=== PATIENT | male | born 1990 | race Caucasian/White ===

== ENCOUNTER 2019-07-06 19:55 | Emergency (ER) | payer BC ==
[~2019-07-06 19:55] MED LIST: Gadobenate Dimeglumine 529 MG/1 ML (20ML VIAL) ONE
[2019-07-06] MEDS ORDERED: Morphine 4 MG/ML VIAL ONE (21:11)
[2019-07-06] MEDS ORDERED: Ketorolac Tromethamine 30 MG/ML VIAL ONE (21:11)
[2019-07-06 21:12] LABS: #Eosinphils 0.1 thou/uL (0.0-0.7); #Lymphocytes 1.3 thou/uL (1.20-3.40); #Monocytes 1.2 thou/uL (0.11-0.59); #Neutrophils 8.7 thou/uL (1.40-6.50); %Basophils 0.1 % (0.0-1.0); %Eosinophils 0.6 % (0.0-10.0); %Lymphocytes 11.7 % (21.0-51.0); %Monocytes 10.4 % (0.0-10.0); %Neutrophils 77.2 % (42.0-75.0); Hemoglobin 14.6 g/dL (14.0-18.0); Mean Corpuscular HGB CONC 35.1 g/dL (32.0-36.0); Mean Corpuscular Hemoglobin 30.7 pg (27.0-31.0); Mean Corpuscular Volume 87.5 fL (78.0-98.0); Mean Platelet Volume 7.8 fL (7.4-10.4); Platelet Count 228 thou/uL (130-400); RBC Distribution Width 11.1 % (11.5-14.5); Red Blood Cell (RBC) Count 4.76 mill/uL (4.70-6.10); White Blood Cell (WBC) Count 11.3 thou/uL (4.8-10.8)
[2019-07-06 21:31] LABS: Anion Gap 12 mmol/L (10-20); BUN (Urea Nitrogen) 18 mg/dL (8.9-20.6); CRP (Inflammatory) 1.17 mg/dL (= or < 0.5); Calc. Creatinine Clearance 0 mL/min (70-130); Calcium 9.7 mg/dL (7.8-10.44); Carbon Dioxide 28 mmol/L (22-29); Chloride 100 mmol/L (98-107); Estimated GFR-MDRD 72; Glucose 94 mg/dL (70-105); Potassium 3.8 mmol/L (3.5-5.1); Sodium 136 mmol/L (136-145)
[2019-07-07] MEDS ORDERED: Morphine 4 MG/ML VIAL ONE (01:03)
[2019-07-07] MEDS ORDERED: traMADol HCl 50 MG TAB ONE (02:10)
--- NOTE | 2019-07-07 08:27 | MRI ---
PRELIMINARY REPORT/[facility]/EMERGENCY AFTER HOURS PROCEDURE: PROCEDURE INFORMATION: Exam: MR Thoracic Spine Without and With Contrast Exam date and time: 07/07/2019 12:30 AM Clinical history: 29 years old, male; Pain in thoracic spine; Patient HX: PT had pain injections 07/05/19 and has been in pain ever since, worse Monday night; Additional info: PT complains of severe back pain. PT states no recent trauma and no lumbar/thoracic SX. PT states he had pain injections Monday and has been in pain since then but worse tonight. Prior lumbar mri done here in 2015. Prior thoracic mri done here in 2016. PT injected with 16 mls of multihance. Creatinine: 1.18 gfr: 72 collected 07/06/19. . . Tech/notes [facility] TECHNIQUE: Imaging protocol: Multiplanar magnetic resonance images of the thoracic spine without and with intravenous contrast. COMPARISON: No relevant prior studies available. FINDINGS: Vertebrae: Unremarkable. Spinal cord: Normal signal. No cord compression. T1-T2: No significant disc disease. No significant spinal stenosis. T2-T3: No significant disc disease. No significant spinal stenosis. T3-T4: No significant disc disease. No significant spinal stenosis. T4-T5: No significant disc disease. No significant spinal stenosis. T5-T6: No significant disc disease. No significant spinal stenosis. T6-T7: No significant disc disease. No significant spinal stenosis. T7-T8: No significant disc disease. No significant spinal stenosis. T8-T9: No significant disc disease. No significant spinal stenosis. T9-T10: No significant disc disease. No significant spinal stenosis. T10-T11: No significant disc disease. No significant spinal stenosis. T11-T12: No significant disc disease. No significant spinal stenosis. Other bones/joints: Degenerative changes with disc desiccation predominantly at the midthoracic level. Soft tissues: Unremarkable. IMPRESSION: No acute process. Thank you for allowing us to participate in the care of your patient. Dictated and Authenticated by: Mary Mccain DO 07/07/2019 1:51 AM Central Time ([place] & [place]) FINAL REPORT: MRI THORACIC SPINE WITH AND WITHOUT IV CONTRAST: PROVIDED CLINICAL HISTORY: Back pain. COMPARISON: 06/16/2017. FINDINGS/IMPRESSION: Agree with the preliminary interpretation given by [facility]DR[facility]. Thoracic disc degenerative changes appears s imilar to the prior study. Transcribed Date/Time: 07/07/2019 8:40 AM
--- NOTE | 2019-07-07 08:29 | MRI ---
PRELIMINARY REPORT/[facility]/EMERGENCY AFTER HOURS PROCEDURE: PROCEDURE INFORMATION: Exam: MR Lumbar Spine Without and With Contrast. Exam date and time: 07/06/2019 11:47 PM Clinical history: 29 years old, male; Low back pain; Patient HX: Pain injections done 07/05/19 and pain ever since, worse Monday night. ; Additional info: PT complains of severe back pain. PT states no recent trauma and no lumbar/thoracic SX. PT states he had pain injections Monday and has been in pain since then but worse tonight. Prior lumbar mri done here in 2015. Prior thoracic mri done her e in 2016. PT injected with 16 mls of multihance. Creatinine: 1.18 gfr: 72 collected 07/06/19. . . Tech/notes [facility] TECHNIQUE: Imaging protocol: Multiplanar magnetic resonance images of the lumbar spine without and with intravenous contrast. COMPARISON: No relevant prior studies available. FINDINGS: Vertebrae: Unremarkable. Spinal cord: The conus terminates at L1. L1-L2: No significant disc disease. No significant spinal stenosis. L2-L3: Bilateral facet fluid at L2-L3. L3-L4: No significant disc disease. No significant spinal stenosis. L4-L5: There are degenerative changes with disc desiccation at L4-L5, L5-S1. There is minimal disc bu lge at L4-L5 with subtle effacement of the anterior thecal sac. Bilateral facet fluid L4-L5. Mild neural foraminal narrowing bilaterally. L5-S1: There are degenerative changes with disc desiccation at L4-L5, L5-S1. There is central disc pr otrusion at L5-S1. There is mild right neural foraminal narrowing at L5-S1. Minimal bilateral facet fluid, slightly more pronounced on the left. Soft tissues: Unremarkable. IMPRESSION: Degenerative changes of the lumbosacral spine. No definite acute process. Thank you for allowing us to participate in the care of your patient. Dictated and Authenticated by: Mary Mccain DO 07/07/2019 1:38 AM Central Time ([place] & [place]) FINAL REPORT: MRI LUMBAR SPINE WITH AND WITHOUT IV CONTRAST: PROVIDED CLINICAL HISTORY: Back pain. COMPARISON: 05/27/2019. FINDINGS/IMPRESSION: Agree with the preliminary interpretation given by MILDRED. Lumbar degenerative changes appear similar t o the prior study. Transcribed Date/Time: 07/07/2019 8:45 AM
== END 2019-07-07 02:18 | disposition home or self-care (01) ==
LOC: ERS 19:55
DX: M54.5 Low back pain (principal); R50.9 Fever, unspecified
CPT/HCPCS: 72157; 72158; 80048; 85025; 85652; 86140; 87804; 96374; 96375; 96376; A9577; J1885; J2270

== ENCOUNTER 2023-08-10 20:46 | Emergency (ER) | payer BC ==
[2023-08-10] MEDS ORDERED: Ibuprofen 800 MG TAB ONE (21:23)
== END 2023-08-10 21:30 | disposition home or self-care (01) ==
LOC: ERS 20:46
DX: S83.91XA Sprain of unspecified site of right knee, initial encounter (principal); W18.30XA Fall on same level, unspecified, initial encounter

== ENCOUNTER 2023-08-24 12:32 | Outpatient (CLI) | payer BC | END 2023-08-24 12:33 | disposition home or self-care (01) | LOC: SCSMRI 12:32 | PROVIDERS: ATTEND Orthopaedic Surgery | DX: S89.91XA Unspecified injury of right lower leg, initial encounter (principal); S83.511A Sprain of anterior cruciate ligament of right knee, initial encounter; S80.01XA Contusion of right knee, initial encounter; S83.281A Other tear of lateral meniscus, current injury, right knee, initial encounter ==